=== PATIENT | female | born 1975 | race Caucasian/White ===

== ENCOUNTER → 2017-09-12 | Outpatient (CLI) | payer BC ==
[2012-03-25 17:11] VITALS: BP 126/75
[~2017-09-12] MED LIST: ADVIL200 MG PO
== END ==
LOC: RAD 13:33
DX: S82.401A Unspecified fracture of shaft of right fibula, initial encounter for closed fracture (principal); Z91.81 History of falling

== ENCOUNTER → 2021-07-09 | Outpatient (CLI) | payer OTHER | LOC: RAD 09:01 | DX: I82.512 Chronic embolism and thrombosis of left femoral vein (principal); I82.532 Chronic embolism and thrombosis of left popliteal vein ==